=== PATIENT | female | born 1935 | race Caucasian/White ===

== ENCOUNTER 2016-10-28 09:11 | Emergency (ER) | payer MEDICARE, BC ==
[~2016-10-28] VITALS: Ht 165.1 cm; Wt 77.0 kg
[~2016-10-28 09:11] MED LIST: ALBU8I INH; APIX5 PO; ASPI81TA82 PO; ATRO17AE INH; CARD120T4 PO; MONT10TA2 PO; PROT40TA PO; SERT25TA83 PO; SYMB80AE INH
[2016-10-28 09:13] VITALS: BP 184/84; PULSE 72; RESP 20; TEMP 98.4; O2SAT 97
[2016-10-28] MEDS ORDERED: IPRA17I INH (09:37)
[2016-10-28] MEDS ORDERED: APIX5TAB PO (09:37)
[2016-10-28] MEDS ORDERED: SYMB80AE INH (09:37)
[2016-10-28] MEDS ORDERED: ASPI1TAB69 PO (09:37)
[2016-10-28] MEDS ORDERED: CARD120T4 PO (09:37)
[2016-10-28] MEDS ORDERED: MONT10TA2 PO (09:37)
[2016-10-28] MEDS ORDERED: PROT40TA PO (09:37)
[2016-10-28] MEDS ORDERED: SERT25TA83 PO (09:37)
--- NOTE | 2016-10-28 09:55 | PD ---
HPI Chief Complaint: Pain: Acute or Chronic Time Seen by Provider: 09:31 Travel History International Travel<30 days: No Contact w/Intl Traveler<30days: No Traveled to known affect area: No History of Present Illness HPI 81yo F with PMH of CVA presents to the ED with c/o left flank pain and periumbilical abdominal pain for about 1 week. Associated with nausea but no vomiting or fever. Pt also has been moving and has left armpit pain that radiates from left neck with movement and pain is worst with movement. Denies any sob, recent fall, focal weakness or numbness. Took acetaminophen without much relief. PFSH Past Medical History Hx Anticoagulant Therapy: Yes (ELOQUIS) Arthritis: Yes (HANDS, NECK, BACK) Asthma: Yes Autoimmune Disease: No Anxiety: No Depression: Yes Heart Rhythm Problems: Yes Cancer: No Cardiovascular Problems: Yes High Cholesterol: Yes Chest Pain: No Congestive Heart Failure: No COPD: Yes Cerebrovascular Accident: Yes Diminished Hearing: No Endocrine: No GERD: Yes Genitourinary: Yes Hiatal Hernia: No Kidney Stones: No Musculoskeletal: Yes Neurologic: Yes Reproductive: No Respiratory: Yes (ASTHMA/COPD) Migraines: Yes Renal Failure: No Seizures: No Sleep Apnea: Yes Ulcer: No Influenza Vaccination: Yes ?: Not : 4 Para: 3 Miscarriage: 1 Past Surgical History Abdominal Surgery: No Cardiac Surgery: No Ear Surgery: No Endocrine Surgery: No Eye Surgery: Yes (CATARACTS REMOVED BOTH EYES) Genitourinary Surgery: No Gynecologic Surgery: Yes (HYSTERECTOMY) Hysterectomy: Yes Oral Surgery: Yes (2 METAL POSTS PLACED IN JAW) Thoracic Surgery: No Tonsillectomy: Yes Social History Alcohol Use: Yes (WINE NIGHTLY) Tobacco Use: No Substance Use: No Allergies-Medications (Allergen,Severity, Reaction): Coded Allergies: Penicillin (Verified Allergy, Severe, Edema, 10/28/16) Reported Meds & Prescriptions Reported Meds & Active Scripts Active Reported Symbicort Inh (Budesonide/Formoterol Fumarate) 80-4.5 Mcg/Act Aero 1 Puff INH Q12HR Atrovent HFA 12.9 GM Inh (Ipratropium [place]) 17 Mcg/Act Aer 2 Puff INH DAILY PRN Sertraline (Sertraline HCl) 25 Mg Tab 25 Mg PO HS Protonix (Pantoprazole Sodium) 40 Mg Tab 40 Mg PO HS Singulair (Montelukast Sodium) 10 Mg Tab 10 Mg PO HS Cardizem (Diltiazem HCl) 120 Mg Tab 120 Mg PO HS Aspirin 81 Mg Tabdr 81 Mg PO HS Eliquis (Apixaban) 5 Mg Tab 5 Mg PO BID Review of Systems Except as stated in HPI: all other systems reviewed are Neg Physical Exam Narrative GENERAL: 81yo F not in distress. SKIN: Focused skin assessment warm/dry. HEAD: Atraumatic. Normocephalic. EYES: Pupils equal and round. No scleral icterus. No injection or drainage. ENT: No nasal bleeding or discharge. Mucous membranes pink and moist. NECK: No midline cervical spine ttp. No paraspinal ttp on exam. Positive shooting pain down arm with extension and rotation of neck that is reproducible. CARDIOVASCULAR: Regular rate and rhythm. No murmur appreciated. RESPIRATORY: No accessory muscle use. Clear to auscultation. Breath sounds equal bilaterally. GASTROINTESTINAL: Abdomen soft, Mild periumbilical ttp. No rebound tenderness or guarding. BACK: +CVA tenderness on left. No midline ttp. MUSCULOSKELETAL: +TTP left trapezius and medial scapula. No obvious deformities. No clubbing. No cyanosis. No edema. NEUROLOGICAL: Awake and alert. No obvious cranial nerve deficits. Motor grossly within normal limits. Normal speech. PSYCHIATRIC: Appropriate mood and affect; insight and judgment normal. Data Data Last Documented VS Vital Signs Date Time Temp Pulse Resp B/P Pulse Ox O2 Delivery O2 Flow Rate FiO2 10/28/16 11:54 18 10/28/16 11:00 58 137/75 99 Room Air 10/28/16 09:13 98.4 Orders Electrocardiogram (10/28/16 ) Complete Blood Count With Diff (10/28/16 09:51) Comprehensive Metabolic Panel (10/28/16 09:51) Lipase (10/28/16 09:51) Prothrombin Time / Inr (Pt) (10/28/16 09:51) Act Partial Throm Time (Ptt) (10/28/16 09:51) Urinalysis - C+S If Indicated (10/28/16 09:51) Ct Abd/Pel W Iv Contrast(Rout) (10/28/16 09:51) Iv Access Insert/Monitor (10/28/16 09:51) Ecg Monitoring (10/28/16 09:51) Oximetry (10/28/16 09:51) Sodium Chloride 0.9% Flush (Ns Flush) (10/28/16 10:00) Troponin I (10/28/16 09:51) Ckmb (Isoenzyme) Profile (10/28/16 09:51) CKMB (10/28/16 10:00) CKMB% (10/28/16 10:00) Morphine Inj (Morphine Inj) (10/28/16 11:15) Iohexol 350 Inj (Omnipaque 350 Inj) (10/28/16 12:07) Labs Laboratory Tests Test 10/28/16 10:00 White Blood Count 8.5 TH/MM3 Red Blood Count 3.90 MIL/MM3 Hemoglobin 13.3 GM/DL Hematocrit 38.6 % Mean Corpuscular Volume 99.0 FL Mean Corpuscular Hemoglobin 34.1 PG Mean Corpuscular Hemoglobin 34.5 % Concent Red Cell Distribution Width 13.2 % Platelet Count 224 TH/MM3 Mean Platelet Volume 8.5 FL Neutrophils (%) (Auto) 59.3 % Lymphocytes (%) (Auto) 28.5 % Monocytes (%) (Auto) 9.3 % Eosinophils (%) (Auto) 2.0 % Basophils (%) (Auto) 0.9 % Neutrophils # (Auto) 5.0 TH/MM3 Lymphocytes # (Auto) 2.4 TH/MM3 Monocytes # (Auto) 0.8 TH/MM3 Eosinophils # (Auto) 0.2 TH/MM3 Basophils # (Auto) 0.1 TH/MM3 CBC Comment DIFF FINAL Differential Comment Prothrombin Time 11.0 SEC Prothromb Time International 1.0 RATIO Ratio Activated Partial 28.0 SEC Thromboplast Time Urine Color DARK-YELLOW Urine Turbidity CLEAR Urine pH 5.5 Urine Specific [place] 1.027 Urine Protein TRACE mg/dL Urine Glucose (UA) NEG mg/dL Urine Ketones TRACE mg/dL Urine Occult Blood NEG Urine Nitrite NEG Urine Bilirubin NEG Urine Urobilinogen 2.0 MG/DL Urine Leukocyte Esterase SMALL Urine RBC 1 /hpf Urine WBC 3 /hpf Urine Squamous Epithelial <1 /hpf Cells Urine Transitional Epithelial <1 /hpf Cells Urine Hyaline Casts 42 /lpf Urine Mucus FEW /lpf Microscopic Urinalysis Comment CULT NOT INDICATED Sodium Level 139 MEQ/L Potassium Level 5.1 MEQ/L Chloride Level 105 MEQ/L Carbon Dioxide Level 25.1 MEQ/L Anion Gap 9 MEQ/L Blood Urea Nitrogen 11 MG/DL Creatinine 0.86 MG/DL Estimat Glomerular Filtration 63 ML/MIN Rate Random Glucose 100 MG/DL Calcium Level 9.1 MG/DL Total Bilirubin 0.5 MG/DL Aspartate Amino Transf 39 U/L (AST/SGOT) Alanine Aminotransferase 24 U/L (ALT/SGPT) Alkaline Phosphatase 73 U/L Total Creatine Kinase 198 U/L Creatine Kinase MB 1.6 NG/ML Creatine Kinase MB % 0.8 % Troponin I LESS THAN 0.02 NG/ML Total Protein 7.9 GM/DL Albumin 3.6 GM/DL Lipase 185 U/L [facility] Medical Decision Making Medical Screen Exam Complete: Yes Emergency Medical Condition: Yes Interpretation(s) EKG: NSR 61bpm. Normal axis. +PACs. No ST segment elevation or depression. Differential Diagnosis Cervical radiculopathy vs. musculoskeletal pain vs. pyelonephritis vs. nephrolithiasis Narrative Course 81yo F with multiple complaints. Pt has left flank pain and nausea. States she has bladder infections before and usually dont have urinary symptoms. Pt also with left axilla pain that is worst with movement. Reproducible shooting pain down left arm with extension of cervical spine consistent with cervical radiculopathy. Do not feel this is cardiac. Labs reviewed, no leukocytosis. Troponin negative. Creatinine normal at 0.86. UA showed small leukocyte. Urine WBC is 3. Trace ketones, likely dehydrated. CTa/p showed sigmoid diverticulosis. Moderate size fate containing rigth Bochdalek hernia which I informed pt about. Pt given morphine 2mg IV and states that her left arm pain and abdominal pain has resolved. Pt able to lift left arm without pain. Pt reevaluated and abdominal exam is negative for any tenderness or guarding. Pt is no longer nauseous and is tolerating PO. Will hydrate orally. Return precautions given. Diagnosis Primary Impression: Dehydration Patient Instructions: General Instructions Departure Forms: Tests/Procedures Additional Instructions: Please follow up with your PMD in 3-7 days. Return to the ED if symptoms worsen. Med/Other Pt SpecificInfo: No Change to Meds Disposition: 01 DISCHARGE HOME Condition: Stable Matilda Piedra Oct 28, 2016 09:55
[2016-10-28] MEDS ORDERED: SODIUM CHLORIDE 0.9% FLUSH 10 ML FLUSH IV FLUSH PRN (10:00)
[2016-10-28 10:15] VITALS: BP 160/71; PULSE 60; RESP 18; O2SAT 96
[2016-10-28 10:28] LABS: BASOPHIL # 0.1 TH/MM3 (0-0.2); BASOPHIL % 0.9 % (0.0-2.0); EOSINOPHIL # 0.2 TH/MM3 (0-0.4); HEMATOCRIT 38.6 % (35.0-46.0); HEMO FLAGS DIFF FINAL; LYMPH % 28.5 % (9.0-44.0); LYMPHOCYTE # 2.4 TH/MM3 (1.0-4.8); MEAN CORPUSCULAR HEMOGLOBIN 34.1 PG (27.0-34.0); MEAN CORPUSCULAR HGB CONC 34.5 % (32.0-36.0); MONO % 9.3 % (0.0-8.0); NEUT % 59.3 % (16.0-70.0); PLATELET COUNT 224 TH/MM3 (150-450); RED CELL DISTRIBUTION WIDTH 13.2 % (11.6-17.2); WHITE BLOOD COUNT 8.5 TH/MM3 (4.0-11.0)
[2016-10-28 10:37] LABS: BLOOD, URINE NEG (NEG); GLUCOSE,URINE NEG (NEG); HYALINE CAST, URINE 42 /lpf (RARE); KETONE, URINE TRACE mg/dL (NEG); MUCUS URINE FEW /lpf (OCC); NITRITE,URINE NEG (NEG); PH, URINE 5.5 (5.0-8.5); SQUAMOUS EPITHELIAL CELL URINE <1 /hpf (0-5); TRANSITIONAL EPI CELLS, URINE <1 /hpf; URINE COLOR DARK-YELLOW (YELLW/STRAW)
[2016-10-28 10:38] LABS: COMMENT (UR) CULT NOT INDICATED; CULTURE IF INDICATED CULT NOT INDICATED
[2016-10-28 10:48] LABS: AST (GOT) 39 U/L (15-37); BLOOD UREA NITROGEN 11 MG/DL (7-18); CHLORIDE 105 MEQ/L (98-107); GLOMERULAR FILTRATION RATE 63 ML/MIN (>89); TOTAL BILIRUBIN ADULT 0.5 MG/DL (0.2-1.0)
[2016-10-28 10:52] LABS: ALKALINE PHOSPHATASE 73 U/L (45-117); ALT (GPT) 24 U/L (10-53); ANION GAP 9 MEQ/L (5-15); BICARBONATE 25.1 MEQ/L (21.0-32.0); SODIUM (NA) 139 MEQ/L (136-145)
[2016-10-28 10:53] LABS: POTASSIUM 5.1 MEQ/L (3.5-5.1)
[2016-10-28 10:54] LABS: CREATINE KINASE 198 U/L (26-192)
[2016-10-28 11:00] VITALS: BP 137/75; PULSE 58; RESP 18; O2SAT 99
[2016-10-28 11:07] LABS: CKMB 1.6 NG/ML (0.5-3.6)
[2016-10-28] MEDS ORDERED: MORPHINE SULFATE 4 MG/ML INJ IV PUSH ONE (11:15)
[2016-10-28 11:54] VITALS: RESP 18
[2016-10-28] MEDS ORDERED: IOHEXOL 350 MG/ML 10 ML VIAL (for RAD DIAG) IV ONE (12:07)
--- NOTE | 2016-10-28 12:25 | RADRPT ---
EXAM DATE/TIME: 10/28/2016 11:55 [facility] COMPARISON: No previous studies available for comparison. INDICATIONS : Periumbilical pain and nausea,left flank pain,for one week. IV CONTRAST: 95 cc Omnipaque 350 (iohexol) IV ORAL CONTRAST: No oral contrast ingested. RADIATION DOSE: 9.96 CTDIvol (mGy) MEDICAL HISTORY : Cardiovascular disease. Chronic obstructive pulmonary disease. Cerebrovascular disease. SURGICAL HISTORY : Hysterectomy. ENCOUNTER: Initial ACUITY: 1 week PAIN SCALE: 5/10 LOCATION: Abdomen TECHNIQUE: Volumetric scanning of the abdomen and pelvis was performed. Using automated exposure control and ad justment of the mA and/or kV according to patient size, radiation dose was kept as low as reasonably achievable to obtain optimal diagnostic quality images. FINDINGS: LOWER LUNGS: The visualized lower lungs are clear. Moderate size right Bochdalek hernia containing only fat. LIVER: Homogeneous density without lesion. There is no dilation of the biliary tree. No calcified gallston es. SPLEEN: Normal size without lesion. PANCREAS: Within normal limits. KIDNEYS: Normal in size and shape. There is no mass, stone or hydronephrosis. Cyst midpole right kidney tamara uring 1.5 cm. ADRENAL GLANDS: Within normal limits. VASCULAR: There is no aortic aneurysm. BOWEL/MESENTERY: No dilated loops of small marked bowel. Numerous small sigmoid diverticula without radiographic evid ence of diverticulitis. ABDOMINAL WALL: Within normal limits. RETROPERITONEUM: There is no lymphadenopathy. BLADDER: No wall thickening or mass. REPRODUCTIVE: Within normal limits. INGUINAL: There is no lymphadenopathy or hernia. MUSCULOSKELETAL: Moderate left lumbar scoliosis with associated hypertrophic degenerative changes. CONCLUSION: 1. Sigmoid diverticulosis without radiographic evidence of diverticulitis. 2. Moderate-sized fat-containing right Bochdalek hernia. Candelario Barnes MD on October 28, 2016 at 12:21 Board Certified Radiologist. This report was verified electronically.
[2016-10-28 16:12] VITALS: BP 184/78
--- NOTE | 2016-10-28 20:24 | EKG ---
Date Performed: 10/28/2016 Time Performed: 09:39:16 PTAGE: 81 years EKG: Sinus rhythm WITH OCCASIONAL SUPRAVENTRICULAR PREMATURE COMPLEXES BORDERLINE ECG PREVIOUS TRACING : 04/27/2016 09.01 DOCTOR: Josh Barahona Interpretating Date/Time 10/28/2016 20:23:10
== END 2016-10-28 16:15 | disposition home or self-care (01) ==
LOC: NEPE 09:11
DX: E86.0 Dehydration (principal); J44.9 Chronic obstructive pulmonary disease, unspecified; Z86.73 Personal history of transient ischemic attack (TIA), and cerebral infarction without residual deficits; J45.909 Unspecified asthma, uncomplicated; Z79.01 Long term (current) use of anticoagulants
CPT/HCPCS: 74177; 80053; 81001; 82550; 82552; 83690; 84484; 85025; 85610; 85730; 93005; 96374; 99284; J2270; Q9967